=== PATIENT | female | born 1945 | race Caucasian/White ===

== ENCOUNTER 2016-07-09 13:54 | Inpatient (IN) | payer MEDICARE ==
[~2016-07-09] VITALS: Ht 167.6 cm; Wt 144.6 kg
--- NOTE | ~2016-07-09 | PNE ---
"ADMIT DATE: 07/09/16 ROOM#: [id number] | MR#: [id number] | | [facility] MARTIN FINNEY | [address] | [facility] [address] | | PHYSICAL THERAPY SEX: F AGE: 71 : [birth year] | PROGRESS NOTE EXTENSION Rehab Plan of Care Update Dr. May, This letter is regarding your patient Martin Finney at [facility], goal date of 07/18/16. The patient has progressed, but would benefit from further safety with transfers and lower extremity strengthening to allow for increased safety. We plan to extend this patient until 08/01/16 for restorative nursing care. PT 3x/week Please let me know if you have any questions or concerns with these goals or patient's plan of care. Thank you, Anita Penaloza, PT, DPT Therapist Signature: Date: Physician Signature: Date: "
[~2016-07-09 13:54] MED LIST: ALDACTONE25 MG PO; AUGMENTIN875 MG PO; B-12 INJ1000 MCG/M SQ; CALCIUM500 MG PO; CARAFATE1 GM PO; CATAPRES-DPS0.1 MG PO; CEFZIL DPS250 MG PO; CEPACOL SORE T1 EAC1 PO; COREG DPS12.5 MG PO; COREG DPS6.25 MG PO; DUONEB DPS3 ML IH; EFFEXOR XR DPS150 MG PO; EFFEXOR XR75 MG PO; GLUCOTROL DPS10 MG PO; GLUCOTROL DPS5 MG PO; HUMALOG100 UNIT/1 SQ; HUMULIN R100 UNIT/1 SQ; HYDRODIURIL-DPS50 MG PO; IMDUR DPS30 MG PO; KENALOG 0.1% D454 GM TP; KLONOPIN DPS0.5 MG PO; KLONOPIN0.5 MG PO; KLOR-CON M2020 ME1 PO; LANTUS100 UNITS/ SQ; LASIX DPS80 MG PO; LASIX40 M1 PO; LEVEMIR100 UNIT/1 SQ; LIPITOR DPS20 MG PO; LIPITOR20 MG PO; LOPRESSOR DPS50 MG PO; LORTAB 7.5-3251 EACH PO; MAALOX DPS30 ML PO; MACRODANTIN DPS50 MG PO; METOPROLOL TART25 MG PO; MIRALAX DPS17 GM PO; MIRALAX PACKET17 GM PO; NEURONTIN300 MG PO; NITROSTAT0.4 MG PO; NORCO 7.5-3251 EACH PO; NORVASC10 MG PO; NORVASC5 MG PO; NOVOLOG100 UNIT/2 SQ; PLAVIX75 MG PO; PROTONIX40 MG PO; REGLAN5 MG PO; ROCALTROL DP0.25 MCG PO; SLOW-MAG64 MG PO; SURFAK DPS240 MG PO; TESSALON PERLE100 MG PO; TYLENOL DPS325 MG PO; VITAMIN D2000 UNI1 PO; ZESTRIL2.5 MG PO; ZYLOPRIM-DPS300 MG PO
[2016-07-10] MEDS ORDERED: ACTIGALL300 MG PO (14:09)
[2016-07-10] MEDS ORDERED: CEPHALEXIN500 MG PO (14:18)
[2016-07-10] MEDS ORDERED: LOVENOX40 MG/0.4 SQ (14:25)
[2016-07-10] MEDS ORDERED: NOVOLOG100 UNIT/2 SQ (14:25)
[2016-07-10] MEDS ORDERED: GLUTOSE 1537.5 GM PO (14:26)
[2016-07-10] MEDS ORDERED: MILK OF MAGNESI10 ML PO (14:27)
[2016-07-10] MEDS ORDERED: MAALOX DPS30 ML PO (14:27)
[2016-07-10] MEDS ORDERED: SURFAK DPS240 MG PO (14:27)
[2016-07-10] MEDS ORDERED: NITROSTAT0.4 MG SL (14:28)
[2016-07-10] MEDS ORDERED: ZOFRAN4 M1 PO (14:28)
[2016-07-10] MEDS ORDERED: GLUCAGON1 MG/ML IM (14:28)
[2016-07-10] MEDS ORDERED: THERAPEUTIC MUL1 TAB PO (14:29)
[2016-07-10] MEDS ORDERED: REGLAN DPS5 MG PO (14:29)
[2016-07-10] MEDS ORDERED: ZOCOR DPS10 MG PO (14:29)
[2016-07-10] MEDS ORDERED: ZETIA10 MG PO (14:29)
--- NOTE | 2016-07-11 13:40 | NUR ---
PT. AT BEDREST, STATES SHE DOES NOT FEEL VERY WELL. DENIES HAVING ANY PAIN. WILL RETURN AT A LATER TIME FOR MDS INTERVIEW.
--- NOTE | 2016-07-12 08:20 | NUR ---
INTERVIEW FOR MDS 3.0-PT. IS IN RECLINER, ALERT AND ORIENTED. PT. KNOWS THE YEAR, MONTH AND DAY OF THE WEEK. PT. CAN REPEAT AND RECALL ALL THREE WORDS WITHOUT CUES. PT. STATES PRIOR TO HOSPITALIZATION, SHE WAS INDEPENDENT AT HOME, MAINLY WHEELCHAIR BOUND BUT IS ABLE TO DO PIVOT TRANSFERS INDEPENDENTLY. SHE COOKS HER OWN MEALS, CLEANS HER OWN HOME. SHE IS ABLE TO USE THE BATHROOM INDEPENDENTLY AND SHOWER INDEPENDENTLY. HOME IS EQUIPED FOR DISABLITIES. PT. DENIES DEPRESSION, STATES HER APPETITE IS PRETTY GOOD IN SPITE OF HAVING NOT BEEN FEELING WELL. DOES NOT SLEEP WELL BUT NEVER DOES, EVEN AT HOME. ITS IMPORTANT TO KNOW WHAT SHE WILL WEAR DURING THE DAY, NO MATTER WHAT IT IS. NOT ALL THAT IMPORTANT TO LOCK UP HER PERSONEL ITEMS OR TALK IN PRIVATE ON THE PHONE. LIKES TO SHOWER AT HOME AND MAKES HER OWN DECISIONS. ENJOYS BEING OUTSIDE IF THE WEATHER PERMITS, GROUP ACTIVITIES ARE FINE. LOVES TO READ, READS THE NEWSPAPER DAILY, LIKES TO KEEP UP WITH THE NEWS, LOVES MUSIC, HAS NO PETS BUT ENJOYS PETS. GOAL IS TO RETURN TO HER HOME AND BE INDEPENDENT SHE CAN BE, FEELS SHE WILL BE READY TO GO HOME SOON. STATES HER PAIN HAS BEEN HIGH A 7, CONSTANT AND MAKES IT DIFFICULT TO DO ANYTHING. STATES PAIN PILLS HELP BUT TAKES ABOUT 45 MIN TO CATCH HOLD. BORN AND RAISED IN [facility], WENT TO THE UNIVERSITY AND WAS YOUNG FOR A SHORT TIME, AFTER DIVORCE TRAVEL ALOT. HAS NO CHILDREN. REMARRIED AT AGE 41 AND TILL 41 YEARS, HE . STATES SHE IS TREATED WELL HERE. THANKED PT. FOR NICE VISIT AND INTERVIEW.
--- NOTE | 2016-07-12 10:23 | NUR ---
PATIENT NOTE MARTIN HAS BEEN ADMITTED TO [facility] FOR CONTINUED STRENGTHENING PRIOR TO HER RETURNING HOME. SHE COMES TO US AFTER SHE WAS TREATED FOR CHF AT [facility]. MARTIN IS A ALERT, ORIENTED AND VERY PLEASANT 71 YEAR OLD WHO LIVES HERE IN [place] ALONE. DUE TO HER DX. OF INFLAMMATORY POLYNEUROPATHY SHE IS W/C BOUND. SHE INFORMED ME THAT HER HOME IS [facility], SHE DOES ALSO HAVE A W/C VAN. SHE ORDERS HER MEDS THROUGH [facility] WHO DELIVERS AND HER GROCEIES ARE FROM [place] WHO ALSO DELIVERS. SHE DOES HAVE OXYGEN AT HOME THROUGH [facility] BUT THIS WELL BE CHANGED TO [facility] PRIOR TO HER LEAVING HERE. HER AND I DID TALK ABOUT APPLYING FOR MEDICAID SO SHE CAN GET SOME ASSISTANCE AT HOME THROUGH A CHOREPROVIDER BUT SHE STATED, "I HAVE TRIED AND I MAKE TOO MUCH." MARTIN IS HERE UNDER HER MEDICARE BENEFTIS WITH THERAPY THE SKILLED SERVICE. SOCIAL WORK TO FOLLOW AND ASSIST WITH D/C PLANNING AND WITH CONCERNS OR NEEDS THAT MAY ARISE.
--- NOTE | 2016-07-15 06:23 | NUR ---
PATIENT DOES NOT DO MUCH TO HELP HERSELF. THIS MORNING SHE WAS IN BED. CURING FINISHER JUST TRANSFERED HER BACK TO BED FROM [facility]. SHE NEEDED ME TO PUT UP HEAD OF BED TAKE OFF HER SLIPPERS AND PULL UP BLANKETS.
--- NOTE | 2016-07-19 14:27 | NUR ---
EXERCIZES, AND DOING HER TRANSFER/PIVOTS. RN NOTIFIED
--- NOTE | 2016-07-20 10:30 | NUR ---
TO DO ANY PIVOTING. PT STATED THAT SHE WAS TIRED AND SHE DIDNT WANT TO DO ANY MORE EXERCISES. SHE COMPLETED HER EXERCISES AT 1020.
--- NOTE | 2016-07-23 10:56 | NUR ---
TRIED TALKING TO PT ABOUT THE IMPORTANCE OF HER RESTORATIVE THERAPY FROM 130 TO 1045. PT STILL REFUSED
--- NOTE | 2016-07-23 11:22 | NUR ---
FROM 1030 TO 1045. SHE REFUSED ALL EXERCISES OFFERED
--- NOTE | 2016-07-23 11:26 | NUR ---
WE BEGAN HER RESTORATIVE THERAPY AT 1030 TO 1045
--- NOTE | 2016-07-24 05:53 | NUR ---
PT STATED TO ME VIRAL THAT SHE HAS SOME CONCERNS REGARDING HER BED BEING TOO HIGH AND NOT BEING ABLE TO GET IN AND OUT OF BED AND THAT LIFTING HER OWN LEGS INTO THE BED IS MAKING HER RIGHT HIP HURT. SHE ALSO STATED THAT HER HIP HURTING COULD ALSO BE FROM PT HAVING HER DO CERTAIN EXERCISES AND SHE THINKS SHE MIGHT HAVE TO STOP DOING THEM TO SEE IF IT HELPS HER. I TOLD HER THAT MAYBE WE CAN GET A BED THAT GOES LOWER SO THEN SHE CAN GET IN AND OUT OF BED EASIER BY HERSELF.
--- NOTE | 2016-08-01 22:55 | NUR ---
PT REQUESTS RN EXAMINE AREA ON FACE; SMALL PINK AREA UNDER LIP ON RT SIDE OF MOUTH, AREA IS DRY, DOES NOT ITCH.
--- NOTE | 2016-08-06 23:00 | NUR ---
demamd glass of ice chips- she says i have rights- that she doesn't care that she will be over (that she even had less at home and she was okay) didn't feel this thirsty all the time as here says I'm going to from the kindey failure or CHF , I don't want to feeling this thirsty- I ask if Dr kaminski is aware of how she feels- explain why she on the fluid limit, we are trying to get her better to go home- still wants glass of ice chips and gave glass of ice chips
--- NOTE | 2016-08-08 15:46 | NUR ---
PATIENT NOTE MARTIN HAS BEEN D/C TO HOME FOLLOWING A 30 DAY STAY HERE AT [facility]. DR. TABARES CAME TO THE UNIT 08/07 AND D/C HER I.V. LASIX THEREFORE SHE NO LONGER HAS A SKILLED SERVICE. MARTIN REMAINS ALERT AND ORIENTED. HER AND I TALKED ABOUT HHC AND MEALS ON WHEELS BOTH SERVICES SHE DECLINED DUE TO NOT WANTING TO BE HOME BOUND. OXYGEN TESTING FOR NIGHT TIME USE WAS DONE LAST NIGHT AND SHE DID QUALIFY. [facility] NOTIFED AT HER REQUEST WITH REFERRAL AND ORDERS FAXED TO THEM. MARTIN DOES NOT HAVE A MEDICARE SUPPLEMENT THEREFORE SHE IS RESPONSIBLE FOR $37.00 A MONTH FOR THAT HOME OXYGEN CONCENTRATOR AND SHE VOICED UNDERSTANDING OF THIS. HER MEDS WERE CALLED INTO [facility] AND THEY WILL DELIVER AND SHE WILL CALL [facility] FOR GROCERY DELIVERY. I WISHED HER WELL AT HOME AND MY BUSINESS CARD IS ON HER D/C PAPERS SO SHE CAN CALL WITH QUESTIONS OR CONCERNS ONCE HOME.
[2016-08-09] MEDS ORDERED: DELTASONE DPS20 MG PO (13:55)
[2016-08-09] MEDS ORDERED: LASIX DPS40 MG PO (13:55)
[2016-08-09] MEDS ORDERED: SLOW-MAG71.5 MG PO (13:57)
[2016-08-09] MEDS ORDERED: ZAROXOLYN2.5 MG PO (13:59)
[2016-08-09] MEDS ORDERED: TUMS DPS500 MG PO (14:07)
[2016-08-09] MEDS ORDERED: DULCOLAX-DPS10 MG PR (14:07)
[2016-10-14] MEDS ORDERED: CATAPRES-DPS0.1 MG PO (15:22)
[2016-10-14] MEDS ORDERED: LASIX DPS80 MG PO (15:22)
[2016-10-14] MEDS ORDERED: COREG DPS12.5 MG PO (15:22)
[2016-10-14] MEDS ORDERED: LANTUS100 UNITS/ SQ (15:23)
[2016-10-14] MEDS ORDERED: MAG6464 MG PO (15:23)
[2016-10-14] MEDS ORDERED: PLAVIX75 MG PO (15:23)
[2016-10-14] MEDS ORDERED: GLUCOTROL DPS10 MG PO (15:23)
[2016-10-14] MEDS ORDERED: NOVOLOG FL100 UNIT/1 SQ (15:24)
[2016-10-14] MEDS ORDERED: REGLAN DPS5 MG PO (15:26)
[2016-10-14] MEDS ORDERED: ZOCOR DPS10 MG PO (15:26)
[2016-10-14] MEDS ORDERED: NOVOLOG100 UNIT/2 SQ (15:26)
[2016-10-14] MEDS ORDERED: ZYLOPRIM-DPS300 MG PO (15:27)
[2016-10-14] MEDS ORDERED: EFFEXOR DPS75 MG PO (15:27)
[2016-10-14] MEDS ORDERED: ZOFRAN4 MG PO (15:27)
[2016-10-14] MEDS ORDERED: KLOR-CON M2020 ME1 PO (15:28)
[2016-10-14] MEDS ORDERED: PEPCID DPS20 MG PO (15:28)
[2016-10-14] MEDS ORDERED: HYDROCODON-ACE1 EAC2 PO (15:28)
[2016-10-14] MEDS ORDERED: KLONOPIN DPS0.5 MG PO (15:29)
[2017-01-17] MEDS ORDERED: MIRALAX PACKET17 GM PO (15:35)
[2017-01-17] MEDS ORDERED: ATIVAN-DPS0.5 MG PO (15:36)
== END 2016-08-08 15:41 | disposition home or self-care (01) | DRG 603 ==
LOC: SNU 14:42
PROVIDERS: ADMIT Internal Medicine
PROC: F07Z9ZZ Gait Training/Functional Ambulation Treatment (ICD-10-PCS; principal; 2016-07-09)
PROC: F08Z4FZ Home Management Treatment using Assistive, Adaptive, Supportive or Protective Equipment (ICD-10-PCS; principal; 2016-07-09)
PROC: 02HV33Z Insertion of Infusion Device into Superior Vena Cava, Percutaneous Approach (ICD-10-PCS; 2016-07-26)
DX: L03.116 Cellulitis of left lower limb (principal); J84.9 Interstitial pulmonary disease, unspecified; L89.152 Pressure ulcer of sacral region, stage 2; K80.10 Calculus of gallbladder with chronic cholecystitis without obstruction; I27.2 Other secondary pulmonary hypertension; I13.0 Hypertensive heart and chronic kidney disease with heart failure and stage 1 through stage 4 chronic kidney disease, or unspecified chronic kidney disease; I50.9 Heart failure, unspecified; I27.81 Cor pulmonale (chronic); N39.0 Urinary tract infection, site not specified; Z68.43 Body mass index [BMI] 50.0-59.9, adult; L03.115 Cellulitis of right lower limb; E66.01 Morbid (severe) obesity due to excess calories; N18.9 Chronic kidney disease, unspecified; I25.10 Atherosclerotic heart disease of native coronary artery without angina pectoris; G47.33 Obstructive sleep apnea (adult) (pediatric); D86.9 Sarcoidosis, unspecified; G61.9 Inflammatory polyneuropathy, unspecified; K02.9 Dental caries, unspecified; E11.9 Type 2 diabetes mellitus without complications; M10.9 Gout, unspecified; Z99.3 Dependence on wheelchair; Z99.81 Dependence on supplemental oxygen; Z95.5 Presence of coronary angioplasty implant and graft; Z66 Do not resuscitate; Z79.84 Long term (current) use of oral hypoglycemic drugs

== ENCOUNTER 2016-09-25 15:16 | Inpatient (IN) | payer MEDICARE ==
[~2016-09-25] VITALS: Ht 167.6 cm; Wt 143.2 kg
[~2016-09-25 15:16] MED LIST changes: +ACTIGALL300 MG PO; +CEPHALEXIN500 MG PO; +DELTASONE DPS20 MG PO; +DULCOLAX-DPS10 MG PR; +GLUCAGON1 MG/ML IM; +GLUTOSE 1537.5 GM PO; +LASIX DPS40 MG PO; +LOVENOX40 MG/0.4 SQ; +MILK OF MAGNESI10 ML PO; +NITROSTAT0.4 MG SL; +REGLAN DPS5 MG PO; +SLOW-MAG71.5 MG PO; +THERAPEUTIC MUL1 TAB PO; +TUMS DPS500 MG PO; +ZAROXOLYN2.5 MG PO; +ZETIA10 MG PO; +ZOCOR DPS10 MG PO; +ZOFRAN4 M1 PO
--- NOTE | 2016-10-06 21:34 | ER ---
ADMIT: 09/25/2016 RM/LOC: 428 [facility] MR#: [id number] [address] [address] MARTIN REEVES [address] [place] [address] Emergency Room Report SEX: F AGE: 71 : 1945 DATE: 09/25/2016 ADDENDUM: This patient comes to the ER because she is having severe abdominal pain. It is in the right upper quadrant. She has had pain like this in the past and feels like it is her gallbladder. She was told that she has a nonfunctioning gallbladder and that to remove her gallbladder could be detrimental to her because of her poor health. She has been nauseated all day, not keeping fluids down, and she is diabetic. On physical exam, her pain is all in the right upper quadrant. She was given morphine and Zofran and Reglan. Ultrasound did have a positive Aguero sign. Stones and sludge were noted but no wall thickening. I did consult with Dr. Nolasco concerning treatment of this patient. I spoke with Dr. May and he will admit the patient. DIAGNOSES: 1. Right upper quadrant pain. 2. Known gallbladder disease. Please see my T-sheet. CINTIA Pierre / Mitchell Nolasco MD / modl JOB #: [id number] CC: Jarred May MD, Attending Physician Jarred May MD, Family Physician
[2016-10-14] MEDS ORDERED: COREG DPS12.5 MG PO (15:22)
[2016-10-14] MEDS ORDERED: CATAPRES-DPS0.1 MG PO (15:22)
[2016-10-14] MEDS ORDERED: LASIX DPS80 MG PO (15:22)
[2016-10-14] MEDS ORDERED: LANTUS100 UNITS/ SQ (15:23)
[2016-10-14] MEDS ORDERED: MAG6464 MG PO (15:23)
[2016-10-14] MEDS ORDERED: GLUCOTROL DPS10 MG PO (15:23)
[2016-10-14] MEDS ORDERED: PLAVIX75 MG PO (15:23)
[2016-10-14] MEDS ORDERED: NOVOLOG FL100 UNIT/1 SQ (15:24)
[2016-10-14] MEDS ORDERED: NOVOLOG100 UNIT/2 SQ (15:26)
[2016-10-14] MEDS ORDERED: REGLAN DPS5 MG PO (15:26)
[2016-10-14] MEDS ORDERED: ZOCOR DPS10 MG PO (15:26)
[2016-10-14] MEDS ORDERED: ZOFRAN4 MG PO (15:27)
[2016-10-14] MEDS ORDERED: EFFEXOR DPS75 MG PO (15:27)
[2016-10-14] MEDS ORDERED: ZYLOPRIM-DPS300 MG PO (15:27)
[2016-10-14] MEDS ORDERED: KLOR-CON M2020 ME1 PO (15:28)
[2016-10-14] MEDS ORDERED: HYDROCODON-ACE1 EAC2 PO (15:28)
[2016-10-14] MEDS ORDERED: PEPCID DPS20 MG PO (15:28)
[2016-10-14] MEDS ORDERED: KLONOPIN DPS0.5 MG PO (15:29)
--- NOTE | 2016-10-29 10:45 | HP ---
ADMIT: 09/25/2016 RM/LOC: 428 [facility] MR#: [id number] [address] [address] ALBA REEVES [address] [place] [address] History and Physical SEX: F AGE: 71 : 1945 DATE OF SERVICE: CHIEF COMPLAINT: 1. Nausea, vomiting, and abdominal pain. 2. Probable cholecystitis. CLINICAL HISTORY: Alba was seen in the office on Saturday. Saturday night she had Martiniquais dinner and it was quite greasy and she started having nausea, abdominal pain, and signs and symptoms of acute cholecystitis. She previously had been at the [facility] with extended stay at skilled care and responded to chenodeoxycholic acid with resolution of her acute cholecystitis from 2 months ago. She comes in now with an ultrasound suggesting the same and typical pain as well as nausea and vomiting. In the interval, she has done reasonably well at home, living in her wheelchair for the most part, but getting out and about in her wheelchair accessible van. She has had a significant improvement over the last 2-3 months. PAST MEDICAL HISTORY: Coronary artery disease, chronic renal insufficiency, chronic peripheral edema and venous insufficiency, inflammatory polyneuropathy, sarcoidosis, pulmonary hypertension, chronic oxygen therapy, depression, and poor dentition. SOCIAL HISTORY: She lives by herself, having lost her and has a handicap accessible apartment. Does drive van with hand steering and has some residual use of her upper extremities, but very little in her lower extremities due to her inflammatory polyneuropathy. PHYSICAL EXAMINATION: GENERAL: Reveals a white female, poor dentition, no acute distress. HEAD AND NECK: Unremarkable. HEART and LUNGS: Unremarkable with changes of grade 1-2/6 systolic murmur unchanged and no heart failure. ABDOMEN: Shows tenderness in right upper quadrant. EXTREMITIES: Show stable mild edema. No deep vein thrombosis. NEUROLOGICAL: She has very poor use and function of her lower extremities, but improved function of her upper extremities, but marked sensory loss there as well. She is significantly overweight. IMPRESSION: 1. Acute cholecystitis superimposed on chronic cholecystitis. 2. Pulmonary hypertension. 3. History of Pickwickian syndrome. 4. History of central apnea. 5. Obstructive sleep apnea with CPAP and oxygen therapy. 6. Diabetes. 7. History of sarcoidosis. 8. Diffusion capacity abnormality. ADMIT: 09/25/2016 RM/LOC: 428 [facility] MR#: [id number] [address] [address] [place] [address] History and Physical SEX: F AGE: 71 : 1945 9. Inflammatory polyneuropathy. 10.Coronary artery disease, status post stenting. 11.History of renal failure. 12.Chronic renal insufficiency. 13.Venous stasis. TREATMENT: We have started her on antibiotics, we would like to keep her n.p.o., rest her stomach and hopefully we can get by without operative intervention. She is a very high risk operative candidate and we have discussed with her that if she needs to have urgent or semi-emergent cholecystectomy, we would probably recommend a tertiary care center with all of her health related complications. This is not to denigrate our surgeon's care but only to recognize my own limitations in providing her all of the services that she needs. Jarred May MD/ faiza JOB #: [id number] CC: Jarred May, Attending Physician Jarred May, Family Physician
--- NOTE | 2016-12-17 13:34 | DS ---
ADMIT: 09/25/2016 RM/LOC: 428 [facility] MR#: [id number] [address] [address] ALBA FINNEY [address] [place] [address] Discharge Summary SEX: F AGE: 71 : 1945 ADMISSION DATE: 09/25/2016 DISCHARGE DATE: 10/05/2016 DISCHARGE DIAGNOSES: 1. Nausea, vomiting, and abdominal pain. 2. Probable cholecystitis. CLINICAL HISTORY: Alba Finney came into the hospital with abdominal pain and intractable nausea secondary to cholecystitis. She previously responded to Actigall therapy which helped considerably, but she was not able to afford this as an outpatient due to its inherent high cost. She came into the hospital with the above. We treated her with antibiotics, subcu Lovenox, Dilaudid LEASING COORDINATOR, oral antiemetics as well as IV antiemetics. Ativan proved to be as efficacious as any in improving her nausea. After a fairly extended course of hospitalization, she elected to go home as she has family coming in to visit to help her with her transition. Just at the last minute after she had refuse skilled care options that we proposed to her, she discovered that her family could not come in to help her and therefore skilled care arrangements were made. We would like to see if we can continue with her Actigall, Ativan, physical therapy, etc. At the time of dismissal to skilled care, she was on: 1. Clonidine 0.1 mg daily. 2. Carvedilol 12.5 mg daily. 3. Lasix 80 mg daily. 4. Plavix 75 mg daily. 5. Lantus 15 units b.i.d. 6. Glipizide 10 mg b.i.d. 7. Magnesium 64 mg b.i.d. 8. Sliding scale NovoLog. ADMIT: 09/25/2016 RM/LOC: 428 [facility] MR#: [id number] [address] [address] ALBA FINNEY [address] [address] Discharge Summary SEX: F AGE: 71 : 1945 9. Reglan 5 mg before meals. 10.Simvastatin 10 mg daily. 11.Allopurinol 300 mg daily. 12.Effexor 75 mg daily. 13.Zofran 4 mg p.o. q.6 hours daily. 14.Hydrocodone 7.5 every 4 to 6 hours as needed. 15.KCl 20 mEq daily. 16.Pepcid 20 mg b.i.d. 17.Ativan 0.5 t.i.d. as well as Tylenol, Maalox, Colace, and milk of magnesia p.r.n. We will see her at the [facility] and follow her closely. Appropriate diagnostic laboratory are also planned. Jarred May MD/ tobiasl JOB #: [id number] CC: Jarred May MD, Attending Physician Jarred May MD, Family Physician
[2017-01-17] MEDS ORDERED: MIRALAX PACKET17 GM PO (15:35)
[2017-01-17] MEDS ORDERED: ATIVAN-DPS0.5 MG PO (15:36)
== END 2016-10-05 14:57 | DRG 445 ==
LOC: ER 15:16 → 4PCU 19:42
PROVIDERS: ADMIT Internal Medicine
DX: K81.0 Acute cholecystitis (principal); E66.2 Morbid (severe) obesity with alveolar hypoventilation; I27.2 Other secondary pulmonary hypertension; E11.22 Type 2 diabetes mellitus with diabetic chronic kidney disease; Z68.42 Body mass index [BMI] 45.0-49.9, adult; Z99.81 Dependence on supplemental oxygen; K81.1 Chronic cholecystitis; I25.10 Atherosclerotic heart disease of native coronary artery without angina pectoris; I87.2 Venous insufficiency (chronic) (peripheral); G61.9 Inflammatory polyneuropathy, unspecified; D86.9 Sarcoidosis, unspecified; I12.9 Hypertensive chronic kidney disease with stage 1 through stage 4 chronic kidney disease, or unspecified chronic kidney disease; N18.9 Chronic kidney disease, unspecified; F32.9 Major depressive disorder, single episode, unspecified; Z99.3 Dependence on wheelchair; Z95.5 Presence of coronary angioplasty implant and graft; Z66 Do not resuscitate; Z79.84 Long term (current) use of oral hypoglycemic drugs

== ENCOUNTER 2016-10-05 14:31 | Inpatient (IN) | payer MEDICARE ==
[~2016-10-05] VITALS: Ht 167.6 cm; Wt 142.0 kg
--- NOTE | 2016-10-09 11:25 | NUR ---
PATIENT NOTE MARTIN HAS BEEN ADMITTED TO [facility] FOR SHORT TERM REHAB WITH THE GOAL OF RETURNING HOME. SHE DOES LIVES HERE IN [place] ALONE. PHYSICAL AND OCCUPATIONAL THERAPY GOAL DATE IS 10/12 AND SHE IS AWARE OF THIS AND VOICES NO CONCERNS. SHE STATED THAT HER FRIEND WILL BE HERE TO TRANSPORT HER HOME ON SATURDAY AFTERNOON. MARTIN ENTERED [facility] WITH A DX. OF CHRONIC CHOLECYSTITIS. SHE IS ALERT AND ORIENTED, AND STATED ABOVE LIVES ALONE IN A HANDICAP ACCESSIBLE APARTMENT. SHE HAS A ELECTRIC SCOOTER AND HANDICAP VAN WITH LIFT. SHE ALSO HAS OXYGEN AT HOME FOR NIGHT TIME USE ONLY. SHE IS HERE UNDER HER MEDICARE BENEFITS AND SHE IS AWARE THAT SHE IS RESPONSIBLE FOR 164.50 A DAY SINCE SHE DOES NOT HAVE A SUPPLEMENT. MARTIN STARTED WITH DAY 31 OF HER MEDICARE BENEFTIS DUE TO HER NOT BEING OUT OF A FACILITY FOR MORE THEN 60 DAYS. HER LAST STAY WITH US WAS 07/09 - 08/08. SOCIAL WORK TO FOLLOW AND ASSIST WITH D/C PLANNING.
--- NOTE | 2016-10-11 14:16 | NUR ---
PATIENT NOTE FOLLOWING A BRIEF STAY HERE AT [facility], DR. TABARES CAME TO SEE MARTIN AND GAVE D/C TO HOME ORDERS FOR 10/12. MARTIN AND I HAVE BEEN VISITING ABOUT THERAPY GOAL DATE OF 10/12 SO SHE WAS AWARE OF THE PLAN. MARTIN AND I TALKED ABOUT HHC SERVICES AND OXYGEN AT HOME. SHE WILL NOT BE HOME BOUND SO SHE DOES NOT QUALIFY FOR HHC. SHE HAS AN OXYGEN CONCENTRATOR AT HOME THAT SHE USES FOR NIGHT TIME USE. SHE ASK THAT MEDS BE CALLED INTO [facility], BUT SHE DOES NOT WANT ANY CALLED UNTIL SOMEONE GOES OVER THEM WITH HER. I INFORMED HER THAT HER NURSE THAT DAY WILL GO OVER THEM PRIOR TO CALLING ANY IN. MARTIN HAS THE EQUIPMENT AT HOME THAT MAKES HER INDEPENDENT SHE CAN BE AT THIS TIME IN HER LIFE. MARTIN WILL BE TRANSPORTED HOME BY HER FRIEND WHO WILL BE HERE AT 4PM ON 10/12.
[2016-10-14] MEDS ORDERED: CATAPRES-DPS0.1 MG PO (15:22)
[2016-10-14] MEDS ORDERED: LASIX DPS80 MG PO (15:22)
[2016-10-14] MEDS ORDERED: COREG DPS12.5 MG PO (15:22)
[2016-10-14] MEDS ORDERED: LANTUS100 UNITS/ SQ (15:23)
[2016-10-14] MEDS ORDERED: GLUCOTROL DPS10 MG PO (15:23)
[2016-10-14] MEDS ORDERED: MAG6464 MG PO (15:23)
[2016-10-14] MEDS ORDERED: PLAVIX75 MG PO (15:23)
[2016-10-14] MEDS ORDERED: NOVOLOG FL100 UNIT/1 SQ (15:24)
[2016-10-14] MEDS ORDERED: REGLAN DPS5 MG PO (15:26)
[2016-10-14] MEDS ORDERED: NOVOLOG100 UNIT/2 SQ (15:26)
[2016-10-14] MEDS ORDERED: ZOCOR DPS10 MG PO (15:26)
[2016-10-14] MEDS ORDERED: ZYLOPRIM-DPS300 MG PO (15:27)
[2016-10-14] MEDS ORDERED: EFFEXOR DPS75 MG PO (15:27)
[2016-10-14] MEDS ORDERED: ZOFRAN4 MG PO (15:27)
[2016-10-14] MEDS ORDERED: KLOR-CON M2020 ME1 PO (15:28)
[2016-10-14] MEDS ORDERED: HYDROCODON-ACE1 EAC2 PO (15:28)
[2016-10-14] MEDS ORDERED: PEPCID DPS20 MG PO (15:28)
[2016-10-14] MEDS ORDERED: KLONOPIN DPS0.5 MG PO (15:29)
[2017-01-17] MEDS ORDERED: MIRALAX PACKET17 GM PO (15:35)
[2017-01-17] MEDS ORDERED: ATIVAN-DPS0.5 MG PO (15:36)
== END 2016-10-12 16:25 | disposition home or self-care (01) | DRG 445 ==
LOC: SNU 14:31
PROVIDERS: ADMIT Internal Medicine
DX: K81.1 Chronic cholecystitis (principal); E66.2 Morbid (severe) obesity with alveolar hypoventilation; I27.2 Other secondary pulmonary hypertension; Z99.81 Dependence on supplemental oxygen; Z68.42 Body mass index [BMI] 45.0-49.9, adult; E11.9 Type 2 diabetes mellitus without complications; G61.9 Inflammatory polyneuropathy, unspecified; I25.10 Atherosclerotic heart disease of native coronary artery without angina pectoris; I87.2 Venous insufficiency (chronic) (peripheral); D86.9 Sarcoidosis, unspecified; I12.9 Hypertensive chronic kidney disease with stage 1 through stage 4 chronic kidney disease, or unspecified chronic kidney disease; N18.9 Chronic kidney disease, unspecified; F32.9 Major depressive disorder, single episode, unspecified; Z99.3 Dependence on wheelchair; Z95.5 Presence of coronary angioplasty implant and graft; Z66 Do not resuscitate; Z79.84 Long term (current) use of oral hypoglycemic drugs

== ENCOUNTER 2016-10-12 18:40 | Emergency (ER) | payer MEDICARE ==
[2016-10-14] MEDS ORDERED: CATAPRES-DPS0.1 MG PO (15:22)
[2016-10-14] MEDS ORDERED: COREG DPS12.5 MG PO (15:22)
[2016-10-14] MEDS ORDERED: LASIX DPS80 MG PO (15:22)
[2016-10-14] MEDS ORDERED: PLAVIX75 MG PO (15:23)
[2016-10-14] MEDS ORDERED: MAG6464 MG PO (15:23)
[2016-10-14] MEDS ORDERED: LANTUS100 UNITS/ SQ (15:23)
[2016-10-14] MEDS ORDERED: GLUCOTROL DPS10 MG PO (15:23)
[2016-10-14] MEDS ORDERED: NOVOLOG FL100 UNIT/1 SQ (15:24)
[2016-10-14] MEDS ORDERED: ZOCOR DPS10 MG PO (15:26)
[2016-10-14] MEDS ORDERED: NOVOLOG100 UNIT/2 SQ (15:26)
[2016-10-14] MEDS ORDERED: REGLAN DPS5 MG PO (15:26)
[2016-10-14] MEDS ORDERED: ZYLOPRIM-DPS300 MG PO (15:27)
[2016-10-14] MEDS ORDERED: EFFEXOR DPS75 MG PO (15:27)
[2016-10-14] MEDS ORDERED: ZOFRAN4 MG PO (15:27)
[2016-10-14] MEDS ORDERED: KLOR-CON M2020 ME1 PO (15:28)
[2016-10-14] MEDS ORDERED: PEPCID DPS20 MG PO (15:28)
[2016-10-14] MEDS ORDERED: HYDROCODON-ACE1 EAC2 PO (15:28)
[2016-10-14] MEDS ORDERED: KLONOPIN DPS0.5 MG PO (15:29)
--- NOTE | 2016-10-16 19:08 | ER ---
ADMIT: 10/12/2016 RM/LOC: ER [facility] MR#: [id number] [address] [address] MARTIN REEVES [address] [place] [address] Emergency Room Report SEX: F AGE: 71 : 1945 DATE: 10/12/2016 HISTORY OF PRESENT ILLNESS: The patient is a 71-year-old female with multiple comorbidities; hypertension; diabetes; coronary artery disease; chronic cholecystitis, who was not a candidate for cholecystectomy; neuropathy, came to the ER with nausea and multiple vomiting, which is nonbloody and nonbilious and pain in the right posterior shoulder and also in the epigastric area going down to the periumbilical area. The patient had normal bowel movement today. The patient states the pain is very, very similar to the previous episodes attack of the pain she had with gallstone, 1 similar episode she had also more severe pain and she was diagnosed with acute cholecystitis, but the patient was not a good candidate for cholecystectomy and did not go through the surgery. PHYSICAL EXAMINATION: GENERAL: The patient was sitting in bed, in no obvious distress, holding the vomiting bag in her hand, but there were no fluid or there were no vomitus inside and the patient did not retch during my examination or taking the history. HEENT/NECK: The patient had normal conjunctiva and sclera was nonicteric. Trachea was midline. No bruit on the neck. CHEST: Clear bilateral to auscultation. HEART: Normal S1, S2 without any gallops or murmurs. ABDOMEN: Distended, pain is obvious. There is no rebound or guarding. Negative Aguero sign. EXTREMITIES: The patient had mild swelling, which per patient was in her baseline. The rest of the physical exam was noncontributory. The patient received Reglan for nausea, morphine for pain control. LABORATORY DATA AND IMAGING: Labs works were done, which showed WBC of 9.8 and hemoglobin of 9.9. EKG showed normal sinus rhythm with a rate of 60, and ADMIT: 10/12/2016 RM/LOC: ER [facility] MR#: [id number] [address] [address] MARTIN REEVES [facility] [place] [address] Emergency Room Report SEX: F AGE: 71 : 1945 troponin I was also negative. Urine was negative for any infection or blood. CMP shows sodium of 137 with potassium of 4.2 and BUN of 79 and creatinine of 1.9, which the patient has very similar, close BUN and creatinine kidney function test before and she has been known for chronic kidney disease. The patient received 500 mL IV bolus normal saline. The patient was re-examined, the patient did not develop any tenderness. Right upper quadrant ultrasound showed cholelithiasis without any evidence of cholecystitis. Pain was controlled. The patient is stable and the patient agrees to be discharged to home to be followed up by the primary doctor as needed. The patient was informed that she is more than welcome to come back if there are any more questions or concerns or any symptoms. The patient acknowledged she understood and agreed with the plan. Wyatt Townsend MD/ faiza JOB #: [id number] CC: Isaias Vale MD, Attending Physician Jarred May MD, Family Physician
[2017-01-17] MEDS ORDERED: MIRALAX PACKET17 GM PO (15:35)
[2017-01-17] MEDS ORDERED: ATIVAN-DPS0.5 MG PO (15:36)
== END 2016-10-12 23:30 | disposition home or self-care (01) ==
LOC: ER 18:40
DX: K80.20 Calculus of gallbladder without cholecystitis without obstruction (principal); I11.9 Hypertensive heart disease without heart failure; I25.10 Atherosclerotic heart disease of native coronary artery without angina pectoris; E11.9 Type 2 diabetes mellitus without complications; Z88.2 Allergy status to sulfonamides; Z79.4 Long term (current) use of insulin; Z79.899 Other long term (current) drug therapy